=== PATIENT | male | born 1990 | race Caucasian/White ===

== ENCOUNTER 2023-05-22 18:46 | Emergency (ER) | payer SELFPAY ==
[~2023-05-22] VITALS: Ht 175.3 cm; Wt 90.7 kg
[2023-05-22 18:54] VITALS: BP_SYST 119; PULSE 114; RESP 18; TEMP 98.2; O2SAT 97
--- NOTE | 2023-05-22 19:29 | NUR ---
patient seen leaving er after arguing with girlfriend. patient lwbs
== END 2023-05-22 19:30 | disposition left against medical advice (07) ==
LOC: SED 18:46
DX: R06.02 Shortness of breath (principal); Z53.21 Procedure and treatment not carried out due to patient leaving prior to being seen by health care provider
CPT/HCPCS: 93005; 99281